=== PATIENT | male | born 1950 | race Caucasian/White ===

== ENCOUNTER → 2020-09-29 | Day surgery (SDC) | payer MEDICARE, OTHER ==
[2020-09-29] VITALS (8 sets, daily range): BP systolic 96–148; BP diastolic 59–86
[~2020-09-29] VITALS: Ht 172 cm; Wt 159.0 kg
[~2020-09-29] MED LIST: ACET325T38 PO; ACHYD1T PO; CATHETER FLUSH 10 ML SYR IV PRN; DESFLURANE (SUPRANE) 15 ML INHAL SOLN ONE; GLYCOPYRROLATE 0.2 MG/ML (ROBINUL) 2 ML VIAL ONE; HOLD METFORMIN - RECEIVED CONTRAST 20 ML VIAL IV SCH; HYDROmorphone 2 MG/ML VIAL (DILAUDID) IV ONE; HYDROmorphone 2 MG/ML VIAL (DILAUDID) ONE; IBUP-16 PO; IOHEXOL 350 MG/ML 100 ML (OMNIPAQUE 350) VIAL IV ONE; KETOROLAC 30 MG/ML VIAL ONE; LACTATED RINGERS 1,000 ML IV PRN; LIDOCAINE PF 2% 5 ML (XYLOCAINE) VIAL ONE; LIDOCAINE/EPI 1%-1:100,000 (XYLOCAINE) 50 ML ONE; LIDOCAINE/EPI 1%-1:200,000 (XYLOCAINE) 30 ML VIAL ONE; METOCLOPRAMIDE INJ 10 MG/2 ML (REGLAN) ONE; MIDAZOLAM 2 MG/2 ML (VERSED) VIAL ONE; NEOSTIGMINE 3 MG/3 ML VIAL ONE; NS 100 ML (IVPB) BAG IV ONE; ONDANSETRON 4 MG/2 ML (SDV) Z0FRAN IVP PRN; ONDANSETRON 4 MG/2 ML (SDV) Z0FRAN ONE; ROCURONIUM 10 MG/ML 5 ML SYRINGE IV ONE; SEVOFLURANE (ULTANE) 15 ML INHAL SOLN ONE; SUCCINYLCHOLINE INJ 100 MG/5 ML SYR/VIAL ONE; ceFAZolin INJECTION 3,000 MG in NS (IVPB) 50 ML IV NR; fentaNYL INJECTION 100 MCG/2 ML AMP ONE; proPOfol 200 MG/20 ML (DIPRIVAN) VIAL IV ONE
--- NOTE | 2020-09-29 12:18 | Diagnostic Imaging Report ---
PROCEDURE: CT abdomen and pelvis with and without contrast. TECHNIQUE: Precontrast acquisitions were acquired through the abdomen and pelvis. Multiple contiguous axial images were obtained through the abdomen and pelvis after the administration of intravenous contrast. Auto Exposure Controls were utilized during the CT exam to meet ALARA standards for radiation dose reduction. INDICATION: Right lower quadrant pain. COMPARISON: None available. FINDINGS: In the right lower quadrant, there is a moderate amount of stranding in the pericolonic fat just beneath the cecum. The appendix courses into this region and the tip is dilated measuring approximately 1.2 cm. This most likely represents a tip appendicitis with a potential obstructing appendicolith in the mid aspect of the appendix. No abscess formation. No bowel obstruction. Lung bases are clear. No pericardial or pleural effusion. Diffuse hypoattenuation liver is indicative of hepatic steatosis. No focal hepatic lesion. The gallbladder, spleen and pancreas are normal. No adrenal mass. Kidneys enhance symmetrically without solid mass lesion or obstruction. There are multiple cysts in the left kidney that do not enhance and require no dedicated follow-up imaging. The urinary bladder is decompressed, limiting assessment. Prostate is not enlarged. Fat-containing umbilical hernia. No concerning focal osseous lesions. IMPRESSION: 1. Acute appendicitis with potential microperforation of the tip of the appendix. No abscess formation. Report was called to Dee Cormier by Dmitri Zhang at 11:57 AM on 09/29/2020 Dictated by: Dictated on workstation # [id number]
--- NOTE | 2020-09-29 14:50 | History & Physical-Surgical ---
DYLON GALE MED STUDENT 09/29/20 1450: History of Present Illness History of Present Illness Reason for visit/HPI Pedro is a 70 yo male that presented from the clinic in [place] for appendicitis. The pain began 10 days ago in his right lower quadrant and began to radiate towards the LLQ. He stated that the pain has remained constant at a 6-7/10 on the pain scale and would occasional increase to a 9/10 when bending over or moving. Patient described the pain as dull and would become sharp mostly when bending over. For the past 4 days he has been able to control the pain with 200mg tylenol and motrin as needed. He has experienced constipation since these symptoms began but is otherwise healthy. He denies any medications, except the occasional tylenol or motrin, and no past medical history. In 1962 he had a tonsillectomy and his only other time to the hospital was in 1959 for a broken wrist. His mother is 92 yo and still living recently diagnoses with hype rtension. His father is and was diagnosed with COPD. Patient had a son that had an emergent appendectomy after it ruptured so he is familiar with the symptoms and doesn't what that to happen to him. Date of Admission 09/29/2020 Date Seen by a Provider: Sep 29, 2020 Time Seen by a Provider: 14:40 I consulted on this patient on 09/29/20 14:40 Attending Physician Jesusita Ngo DO Admitting Physician [facility] Consult Allergies and Home Medications Allergies Coded Allergies: No Allergy Information Available (Unverified , 09/29/20) Past Mgbtguv-Huytya-Usuiuc Hx Patient Social History Alcohol Use: Rarely Uses (whiskey or a beer once a month) Recreational Drug Use: No Smoking Status: Former Smoker (quit september 1989- 1 pack a day) Type Used: Cigarettes 2nd Hand Smoke Exposure: Yes ( and parents) Recent Foreign Travel: No Contact w/Someone Who Travel: No Recent Infectious Disease Expo: No Recent Hopitalizations: No Ebola Symptoms: Denies Symptoms Listed Physical Abuse Screen: No Sexual Abuse: No Immunizations Up To Date Tetanus Booster (TDap): Less than 5yrs PED Vaccines UTD: Yes Seasonal Allergies Seasonal Allergies: Yes (pollen) Surgeries History of Surgeries: Yes Surgeries: Adenoidectomy Respiratory History of Respiratory Disorde: No Cardiovascular History of Cardiac Disorders: No Neurological History of Neurological Disord: No Reproductive System Hx Reproductive Disorders: No Sexually Transmitted Disease: No HIV/AIDS: No Genitourinary History of Genitourinary Disor: No Gastrointestinal History of Gastrointestinal Di: No Musculoskeletal History of Musculoskeletal Dis: No Endocrine History of Endocrine Disorders: No HEENT History of HEENT Disorders: No Cancer History of Cancer: No Psychosocial History of Psychiatric Problem: No Integumentary History of Skin or Integumenta: No Blood Transfusions History of Blood Disorders: No Adverse Reaction to a Blood Tr: No Family Medical History Significant Family History: COPD, Hypertension Review of Systems Constitutional: no symptoms reported EENTM: no symptoms reported Respiratory: no symptoms reported Cardiovascular: no symptoms reported Gastrointestinal: RLQ, LLQ Genitourinary: no symptoms reported Musculoskeletal: no symptoms reported Skin: no symptoms reported Psychiatric/Neurological: No Symptoms Reported Physical Exam Vital Signs Capillary Refill : Height, Weight, BMI Height:5'8" Weight:351 lbs. oz. kg; BMI Method: General Appearance: WD/WN, Mild Distress HEENT: PERRL/EOMI Neck: Full Range of Motion, Normal Inspection Respiratory: Chest Non Tender, Lungs Clear, Normal Breath Sounds, No Accessory Muscle Use, No Respiratory Distress Cardiovascular: Regular Rate, Rhythm, No Edema, No Gallop, No Murmur, Normal Peripheral Pulses Gastrointestinal: Normal Bowel Sounds, No Organomegaly, Hernia (umbilical hernia), Tenderness (localized RLQ tenderness upon palpation) Extremity: Normal Capillary Refill, Normal Inspection, Normal Range of Motion, Non Tender, No Calf Tenderness, No Pedal Edema Neurologic/Psychiatric: Alert, Oriented x3, No Motor/Sensory Deficits, Normal Mood/Affect Skin: Normal Color, Warm/Dry Lymphatic: No Adenopathy (INGUINAL, CERVICAL, OR AXILA) Assessment/Plan Assessment/Plan Assessment/Plan Assessment: acute appendicitis Plan: IV fluids, IV antibiotics, OR for appendectomy Final Diagnosis acute appendicitis Diagnosis/Problems Diagnosis/Problems (1) Acute appendicitis Onset Date: ~ 09/20/2020 Status: JESUSITA Davis DO 09/29/20 1622: History of Present Illness History of Present Illness Reason for visit/HPI Pt sent down from [place] for RLQ pain and appendicitis. Pain has been getting worse. Time Seen by a Provider: 15:56 Allergies and Home Medications Allergies Coded Allergies: No Allergy Information Available (Unverified , 09/29/20) Patient Home Medication List Home Medication List Reviewed: Yes Past Slknhaw-Vqwpvk-Adexoz Hx Patient Social History Alcohol Use: Rarely Uses (whiskey or a beer once a month) Recreational Drug Use: No Smoking Status: Former Smoker (quit september 1989- 1 pack a day) Type Used: Cigarettes Surgeries History of Surgeries: Yes Surgeries: Tonsillectomy Respiratory History of Respiratory Disorde: No Cardiovascular History of Cardiac Disorders: No Neurological History of Neurological Disord: No Reproductive System Hx Reproductive Disorders: No Sexually Transmitted Disease: No HIV/AIDS: No Genitourinary History of Genitourinary Disor: No Gastrointestinal History of Gastrointestinal Di: No Musculoskeletal History of Musculoskeletal Dis: No Endocrine History of Endocrine Disorders: No HEENT History of HEENT Disorders: No Cancer History of Cancer: No Psychosocial History of Psychiatric Problem: No Family Medical History Significant Family History: COPD (father), Hypertension (mother) Review of Systems Constitutional: No chills, No diaphoresis, No fever EENTM: No blurred vision, No mouth pain, No mouth swelling, No epistaxis, No throat swelling Respiratory: No cough, No dyspnea on exertion, No short of breath Cardiovascular: No chest pain, No palpitations Gastrointestinal: RLQ, LLQ; No nausea, No vomiting Genitourinary: No frequency, No hematuria, No hesitancy Musculoskeletal: No joint pain; joint swelling (left ankle when he walks alot); No muscle pain Skin: No change in color, No change in hair/nails Psychiatric/Neurological: Denies Anxiety, Denies Depressed, Denies Seizure, Denies Tremors Pt denies any hx of abnormal bleeding or bruising Physical Exam General Appearance: No Apparent Distress, Obese (super morbidly) Eyes: Bilateral Eye PERRL, Bilateral Eye EOMI HEENT: Moist Mucous Membranes; No Scleral Icterus (L), No Scleral Icterus (R) Neck: Full Range of Motion, Normal Inspection, Supple Respiratory: Chest Non Tender, Lungs Clear, Normal Breath Sounds, No Accessory Muscle Use, No Respiratory Distress Cardiovascular: Regular Rate, Rhythm, No Edema, No Murmur Gastrointestinal: Normal Bowel Sounds, No Organomegaly, Soft, Hernia (umbilical hernia, large and incarcerated), Tenderness (localized RLQ tenderness upon palpation) Rectal: Deferred Extremity: Normal Capillary Refill, Normal Range of Motion, No Calf Tenderness, No Pedal Edema Neurologic/Psychiatric: Alert, Oriented x3, No Motor/Sensory Deficits, Normal Mood/Affect, baggageman II-XII Norm as Tested Skin: Normal Color, Warm/Dry Lymphatic: No Adenopathy (INGUINAL, CERVICAL, OR AXILLA) Data Review Radiology Date of Exam:09/29/20 CT ABDOMEN/PELVIS W WO PROCEDURE: CT abdomen and pelvis with and without contrast. TECHNIQUE: Precontrast acquisitions were acquired through the abdomen and pelvis. Multiple contiguous axial images were obtained through the abdomen and pelvis after the administration of intravenous contrast. Auto Exposure Controls were utilized during the CT exam to meet ALARA standards for radiation dose reduction. INDICATION: Right lower quadrant pain. COMPARISON: None available. FINDINGS: In the right lower quadrant, there is a moderate amount of stranding in the pericolonic fat just beneath the cecum. The appendix courses into this region and the tip is dilated measuring approximately 1.2 cm. This most likely represents a tip appendicitis with a potential obstructing appendicolith in the mid aspect of the appendix. No abscess formation. No bowel obstruction. Lung bases are clear. No pericardial or pleural effusion. Diffuse hypoattenuation liver is indicative of hepatic steatosis. No focal hepatic lesion. The gallbladder, spleen and pancreas are normal. No adrenal mass. Kidneys enhance symmetrically without solid mass lesion or obstruction. There are multiple cysts in the left kidney that do not enhance and require no dedicated follow-up imaging. The urinary bladder is decompressed, limiting assessment. Prostate is not enlarged. Fat-containing umbilical hernia. No concerning focal osseous lesions. IMPRESSION: 1. Acute appendicitis with potential microperforation of the tip of the appendix. No abscess formation. Report was called to Dee Cormier by Dmitri Zhang at 11:57 AM Assessment/Plan Assessment/Plan Admission Diagonsis Acute Appendicitis Admission Status: Observation Assessment/Plan Acute Appendicitis Incarcerated Umbilical Hernia I spoke with pt and we discussed the surgery in detail; risks and complications not limited to pain, bleeding, infection, scar and damage to intestine. I will not be able to fix his umbilical hernia, because it would best be fixed with mesh and mesh cannot be placed in a contaminated case. He unfortunately ate at 10 am and so it would be best if he waits 8 hours before doing surgery. In the meantime he is getting IV fluids, pain meds as needed and will get IV ABX just prior to going to the OR. Supervisory-Addendum Brief Verification & Attestation Participated in pt care: history, MDM, physical Personally performed: exam, history, MDM Care discussed with: Medical Student Procedures: n/a Verification and Attestation of Medical Student E/M Service A medical student performed and documented this service. I then reviewed and verified all information documented by the medical student and made modifications to such information, when appropriate. I personally performed a physical exam, medical decision making and then discussed any differences between the notes and made revisions as necessary to create one note. Jesusita Ngo , 09/29/20 , 16:29 Problem Qualifiers (1) Acute appendicitis: Acute appendicitis type: with localized peritonitis DYLON GALE MED STUDENT Sep 29, 2020 14:50 JESUSITA NGO DO Sep 29, 2020 16:22
--- NOTE | 2020-09-29 18:35 | NUR ---
1745- pt was taken back to surgery. 1800- House Sup was called and given update on times and in regards to pt not getting back to [facility] untill 1900 possible so he was needing a bed upstairs for recovery. HS stated she would get a room on 4th floor and she would contact PACU with the updated plan. 180- Dr. Seymour was updated with the new plan of the patient going upstairs for recovery and was asked to please print pt's pain scripts now before surgery that way pt's can pick them up from pharmacy before they close. did print scripts at this time and was given to the . She was advised that the will be calling her after the surgery for an update on how it went. 184-I was notified that pt will now be recovering in PACU with the expectations of discharge from there. This update is from María PARKER. All pt's belongings and hearing aids were placed in a belongings bag and given to María PARKER
--- NOTE | 2020-09-29 19:26 | Progress Note-Post Operative ---
Post-Operative Progess Note Surgeon (s)/Plasma Processor (s) Surgeon JESUSITA NGO DO Plasma Processor: DAVY Sher Pre-Operative Diagnosis Acute appy Post-Operative Diagnosis same Procedure & Operative Findings Date of Procedure 09/29/20 Procedure Performed/Findings PROCEDURE: Laparoscopic appendectomy. COMPLICATIONS: None. INDICATIONS: The patient is a 70 year old male who has been having right lower quadrant abdominal pain. Patient's exam consistent with appendicitis. I discussed risk and benefits of laparoscopic appendectomy and all indicated procedures with the possibility being a normal appendix. The patient understands the risks and benefits and wishes to proceed. Consent was signed on the chart. DESCRIPTION OF PROCEDURE: The patient was taken to the operating suite, prepped and draped in a sterile fashion. Timeout was performed. Local anesthetic was infiltrated just around the umbilicus and 11-blade scalpel was used to make a skin incision. Cautery was used to dissect down to the fascia and then attempted to push the umbilical hernia contents back into abdomen. This was unsuccessful, so I then cut off some of the omentum with the Ligasure. Next I cut out a portion of the hernia sac and both were passed off the table. Kochers were used to grasp and elevate it and the abdomen was then entered. It required two 0 Vicryl [id number] fashion sutures and one simple 0 Vicryl for closure at the end of the case. The balloon trocar was inserted into the abdomen and pneumoperitoneum was achieved. Under direct visualization of the laparoscope, a 5 mm trocar was placed in the suprapubic region and a 5 mm trocar was placed in the left lower quadrant. Appendix was located, [it was very adhesed to the small bowel and the abdominal wall. While carefully pushing it off the wall, purulent fluid came out and saw a hole in the appendix]. The base of the appendix was dissected around and then at the base an Endo-LUDY 2.5 stapler was then fired across the base of the appendix. The mesoappendix was then divided. It was then placed in an Endobag and removed through the 12 mm trocar site. The abdomen was then irrigated and suctioned. No other pathology noted. The abdomen was then desufflated and the trocars were removed. The skin was then closed using 4-0 Monocryl in a subcuticular fashion. The abdomen was then washed and dried and Skin Affix was placed over the incisions. The patient tolerated the procedure well without any complications and was taken to the recovery room in stable condition. Anesthesia Type GET Estimated Blood Loss Estimated blood loss (mL): scant Specimens/Packing Specimens Removed omental fat - hernia contents hernia sac appendix JESUSITA NGO DO Sep 29, 2020 19:26
--- NOTE | 2020-09-29 19:27 | Discharge Inst-Surgical ---
Discharge Inst-Surgical Depart Medication/Instructions New, Converted or Re-Newed RX: RX Given to Pt/Family Patient Instructions Follow up Appt: Make appointment for 1 week. [phone] Instructions: No lifting greater than 20 pounds. No strenuous activity. May shower in 24 hours, no tub bath or soaking. Use incentive spirometer at home as directed. No Smoking Skin/Wound Care: May remove bandages in am. You need to leave the Dermabond on incision it will fall off on it's own. Symptoms to Report: Appetite Changes, Extremity Discoloration, Numbness/Tingling, Swelling Increased, Bleeding Excessive, Eyesight Changes, Pain Increased, Urine Color Change, Constipation(Persistent), Fever over 101 degree F, Pain/Pressure in chest, Urinating Difficulty, Cough Up/Vomit Blood, Heart Beat Irreg/Pounding, Pain/Pressure in jaw, Cramps in feet or legs, Lightheadedness, Pain/Pressure in shoulder, Diarrhea(Persistent), Memory Changes Suddenly, Questions/Concerns, Weight gain consecutive days, Dizziness/Fainting, Nausea/Vomiting, Shortness of Breath, Weight gain over 2 pounds If questions or concerns contact your physician Or seek help at emergency department. Activity Activity as Tolerated: Yes Activity Instructions: Avoid Stress to Incision Driving Instructions: No Driving/Refer to Dr. Rebolledo Discharge Diet: No Restrictions Diet After 24 Hours: Clear Liquid if Nauseous If Any Problems/Questions/Issu: Contact Your Physician, Go to Emergency Room Skin/Wound Care Infection Signs and Symptoms: Increased Redness, Foul Odor of Wound, Increased Drainage, Skin Itchy or Has a Rash, Increased Swelling, Temperature Above 101 F Wound Care Comment: heating pad to shoulder or neck tonight for pain Bathing Instructions: Shower Stitches/Marika/Dermabond Dis: Dermabond Ice Pack: Ice On and Off Site JESUSITA NGO DO Sep 29, 2020 19:27
--- NOTE | 2020-09-29 20:30 | NUR ---
DARRIN DAHL to room , on 09/29/20 from [facility] via [facility], accompanied by STAFF. DARRIN DAHL introduced to surroundings, call light, bed controls, phone, TV, temperature control, lights, meal times, smoking policy, visitor policy, side rail policy, bathrooms and showers. Patient Rights given to patient in the handbook.DARRIN DAHL verbalizes understanding that [facility] is not responsible for the loss or damage to any personal effects or valuables that are kept in the patients posession during their hospitalization.
--- NOTE | 2020-09-29 21:15 | NUR ---
DARRIN DAHL demonstrates understanding of discharge instructions and accurately returns instructions upon questioning. Copy of Post-Discharge Instructions given to PT. DARRIN DAHL is able to manage continuing needs after discharge. Patients belongings returned to PT. Patient discharged from 4TH FLOOR on 09/29/20 at 2115 . DARRIN DAHL left floor via WC, accompanied by STAFF.
--- NOTE | 2020-09-30 09:37 | Anesthesia-General Post-Op ---
General Patient Condition Mental Status/LOC: Same as Preop Cardiovascular: Satisfactory Nausea/Vomiting: Absent Respiratory: Satisfactory Pain: Controlled Complications: Absent Post Op Complications Complications None Follow Up Care/Instructions Patient Instructions None needed. Anesthesia/Patient Condition Patient Condition Patient is doing well, no complaints, stable vital signs, no apparent adverse anesthesia problems. No complications reported per nursing. RAISA BORDEN CRNA Sep 30, 2020 09:37
== END ==
LOC: RAD FS 08:10 → SDC 13:23
PROVIDERS: ATTEND Surgery
DX: K35.80 Unspecified acute appendicitis (principal); E66.01 Morbid (severe) obesity due to excess calories; Z68.43 Body mass index [BMI] 50.0-59.9, adult; Z79.899 Other long term (current) drug therapy; Z87.891 Personal history of nicotine dependence; Z20.828 Contact with and (suspected) exposure to other viral communicable diseases
CPT/HCPCS: 44970; 74178; 87081; 88302; 88304; U0002; 87635

== ENCOUNTER → 2022-05-11 | Outpatient (CLI) | payer MEDICARE, OTHER ==
[~2022-05-11] MED LIST changes: -CATHETER FLUSH 10 ML SYR IV PRN; -DESFLURANE (SUPRANE) 15 ML INHAL SOLN ONE; -GLYCOPYRROLATE 0.2 MG/ML (ROBINUL) 2 ML VIAL ONE; -HOLD METFORMIN - RECEIVED CONTRAST 20 ML VIAL IV SCH; -HYDROmorphone 2 MG/ML VIAL (DILAUDID) IV ONE; -HYDROmorphone 2 MG/ML VIAL (DILAUDID) ONE; -IOHEXOL 350 MG/ML 100 ML (OMNIPAQUE 350) VIAL IV ONE; -KETOROLAC 30 MG/ML VIAL ONE; -LACTATED RINGERS 1,000 ML IV PRN; -LIDOCAINE PF 2% 5 ML (XYLOCAINE) VIAL ONE; -LIDOCAINE/EPI 1%-1:100,000 (XYLOCAINE) 50 ML ONE; -LIDOCAINE/EPI 1%-1:200,000 (XYLOCAINE) 30 ML VIAL ONE; -METOCLOPRAMIDE INJ 10 MG/2 ML (REGLAN) ONE; -MIDAZOLAM 2 MG/2 ML (VERSED) VIAL ONE; -NEOSTIGMINE 3 MG/3 ML VIAL ONE; -NS 100 ML (IVPB) BAG IV ONE; -ONDANSETRON 4 MG/2 ML (SDV) Z0FRAN IVP PRN; -ONDANSETRON 4 MG/2 ML (SDV) Z0FRAN ONE; -ROCURONIUM 10 MG/ML 5 ML SYRINGE IV ONE; -SEVOFLURANE (ULTANE) 15 ML INHAL SOLN ONE; -SUCCINYLCHOLINE INJ 100 MG/5 ML SYR/VIAL ONE; -ceFAZolin INJECTION 3,000 MG in NS (IVPB) 50 ML IV NR; -fentaNYL INJECTION 100 MCG/2 ML AMP ONE; -proPOfol 200 MG/20 ML (DIPRIVAN) VIAL IV ONE
--- NOTE | 2022-05-11 13:58 | Diagnostic Imaging Report ---
Back pain radiating into the left hip COMPARISON: While I have no previous for direct comparison, we can correlate with abdominal pelvic CT dated 09/29/2020. That exam includes sagittal and coronal reconstructions. Lumbar statures stable and normal, their alignment anatomic. Degenerative changes remain greatest at the L5-S1 level where there is spondylosis and facet arthrosis. No acute appearing abnormality. IMPRESSION: Chronic degenerative changes across the lumbosacral junction with no fracture or malalignment apparent. Dictated by: Dictated on workstation # [id number]
== END ==
LOC: RAD FS 09:41
PROVIDERS: ATTEND Nurse Practitioner Family
DX: M47.817 Spondylosis without myelopathy or radiculopathy, lumbosacral region (principal)
CPT/HCPCS: 72100